=== PATIENT | male | born 1955 | race Caucasian/White ===

== ENCOUNTER 2024-07-22 14:15 | Emergency (ER) | payer MEDICARE, SELFPAY ==
[2024-07-22] VITALS (7 sets, daily range): BP systolic 107–137; BP diastolic 67–97; PULSE 59–87; RESP 13–24; TEMP 36.7–36.8; O2SAT 95–100
--- NOTE | ~2024-07-22 | CT_ITS ---
CT of the Abdomen and Pelvis: Indication: Intragluteal abscess Technique: 2.5 mm axial scans were obtained through the abdomen and pelvis following intravenous adm inistration of 100 cc of Omnipaque 350. Dose reduction technique was used on this scan by utilizing a utomated exposure control and iterative reconstruction technique. The dose-length product (DLP) was 1 012.16 mGy-cm. Findings: Scans through the lung bases are unremarkable. The liver, spleen, pancreas, gallbladder, adrenals and kidneys are within normal limits. No evidence of aortic aneurysm. No lymphadenopathy. No bowel obstruction or bowel wall thickening. There is no evidence to suggest acute appendicitis. Images through the pelvis were performed. Urinary bladder unremarkable. Prostate gland and seminal ve sicles are unremarkable. No ascites. There is a 6.0 x 4.3 cm hyperdense masslike lesion at the medial aspect of the left gluteus radha m uscle, compatible with hematoma. There is extensive surrounding infiltrative change in the subcutaneo us soft tissues of the left buttock region. No soft tissue gas evident. Impression: 6.0 x 4.3 cm probable hematoma at the medial aspect of the left gluteus radha muscle with extensive surrounding inflammatory/infiltrative changes. Correlate for superinfection. No definite fluid colle ction evident. Reviewed, dictated and finalized at [facility]. Impression: 6.0 x 4.3 cm probable hematoma at the medial aspect of the left gluteus radha muscle with extensive surrounding inflammatory/infiltrative changes. Correlate for superinfection. No definite fluid collection evident.
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
[2024-07-22] MEDS: HALOPERIDOL LACTATE 5 MG/ML VIAL IM (17:56)
--- NOTE | 2024-07-22 18:29 | PC.NURSE ---
this RN attempted to start an IV on the pt but pt was agitated, trying to fight staff, and endangering himself and others. 1mL of haloperidol was given IM to help calm the pt down to get an IV in
[2024-07-22] MEDS: SODIUM CHLORIDE 0.9% IV 1,000 ML 999 ML IV CONT ×2 (18:38→23:05)
[2024-07-22] MEDS: MORPHINE SULFATE (*CRX) 4 MG/ML INJ IV PUSH (18:43)
[2024-07-22 18:53] LABS: Basophils Absolute Auto 0.1 K/mm3 (0.0-0.1); Basophils Percent Auto 0.7 % (0.2-1.2); Eosinophils Absolute Auto 0.1 K/mm3 (0-0.3); Hematocrit 38.9 % (42.0-52.0); Immature Granulocyte Absolute 0.08 K/mm3 (0.00-0.031); Immature Granulocyte Percent A 0.7 % (0-0.5); Lymphocytes Percent Auto 14.9 % (18.3-44.2); Mean Corpuscular HGB Conc 33.4 g/dl (32-36); Mean Corpuscular Hemoglobin 31.9 pg (26-34); Mean Corpuscular Volume 95.6 fl (80-100); Mean Platelet Volume 9.3 fl (7.4-10.4); Monocytes Absolute Auto 1.3 K/mm3 (0.1-0.6); Monocytes Percent Auto 11.7 % (2.6-8.5); Neutrophils Absolute Auto 8.1 K/mm3 (1.3-6.7); Platelet Count Result 490 k/mm3 (150-375); Red Blood Count 4.07 M/mm3 (4.6-6.20); Red Cell Distribution Width 14.6 % (11.5-14.5); White Blood Count 11.4 K/mm3 (4.5-10.0)
[2024-07-22 19:29] LABS: Erythrocyte Sedimentation Rate 10 mm/hr (0-20)
[2024-07-22 19:30] LABS: Lactic Acid Reflex 3.5 mmol/L (0.7-2.0)
[2024-07-22 19:32] LABS: Alanine Aminotransferase 23 U/L (6-50); Albumin Level 4.6 g/dL (3.5-5.1); Alkaline Phosphatase 41 U/L (38-126); Anion Gap 12 mmol/L (4-12); Aspartate Amino Transferase 51 U/L (17-59); Bilirubin,Total 0.8 mg/dL (0.2-1.3); Blood Urea Nitrogen 23 mg/dL (9-20); CRP < 0.5 mg/dL (<1.0); Calcium 9.2 mg/dL (8.4-10.2); Carbon Dioxide 27 mmol/L (22-30); Chloride 98 mmol/L (98-107); Estimated CRCL calculation 65 ml/min; Estimated Glomerular Filt Rate > 60; Glucose 92 mg/dL (65-110); Potassium 4.2 mmol/L (3.4-5.0); Sodium 137 mmol/L (137-145)
[2024-07-22] MEDS: OLANZapine 10 MG INJ VIAL 7.5 MG IM (20:34)
[2024-07-22 21:50] LABS: Reflex Lactic Acid Yes or No Add Lactic
[2024-07-22 23:33] LABS: Lactic Acid 0.8 mmol/L (0.7-2.0)
[2024-07-23] MEDS: OLANZapine 10 MG INJ VIAL 5 MG IM (00:36)
[2024-07-23 01:34] VITALS: BP 134/65; PULSE 73; RESP 18; O2SAT 98
[2024-07-23] MEDS: LIDOCAINE 5% PATCH 1 PATCH TRANSDERM (01:54)
[2024-07-23] MEDS: ACETAMINOPHEN 500 MG TABLET 1000 MG PO (01:55)
[2024-07-23] MEDS: IBUPROFEN 400 MG TABLET PO (01:55)
[2024-07-23 04:35] VITALS: BP 156/65; PULSE 77; RESP 29; O2SAT 94
[2024-07-23 06:46] VITALS: BP 182/76; PULSE 98; RESP 18; O2SAT 95
[2024-07-23 08:30] VITALS: BP 117/56; PULSE 83; RESP 18; TEMP 36.8; O2SAT 97
== END 2024-07-23 08:30 ==
PROVIDERS: Emergency Provider Student in an Organized Health Care Education/Training Program
DX: R79.89 Other specified abnormal findings of blood chemistry (principal); D64.9 Anemia, unspecified; D75.839 Thrombocytosis, unspecified; D72.829 Elevated white blood cell count, unspecified; S30.0XXA Contusion of lower back and pelvis, initial encounter; G30.9 Alzheimer's disease, unspecified; F02.80 Dementia in other diseases classified elsewhere, unspecified severity, without behavioral disturbance, psychotic disturbance, mood disturbance, and anxiety; X58.XXXA Exposure to other specified factors, initial encounter
CPT/HCPCS: 36415; 74177; 80053; 83605; 83735; 85025; 85652; 86140; 96360; 96361; 96372; 96374; 99284; A9270; J1630; J2270; J2359; J7030; Q9967

== ENCOUNTER 2025-03-06 16:15 | Emergency (ER) | payer MEDICARE, SELFPAY ==
[2025-03-06 16:16] VITALS: BP 106/84; PULSE 98; RESP 16; TEMP 36.8; O2SAT 98
--- NOTE | 2025-03-06 16:40 | PC.NURSE ---
Pt. agitated, attempts to grab and pull staff. Also attempted to grab at at bedside. Pt. not redirectable.
[2025-03-06] MEDS: WATER, STERILE FOR INJECTION 10 ML VIAL XX ×2 (16:41→18:03)
[2025-03-06] MEDS: OLANZapine 10 MG INJ VIAL (16:41)
--- NOTE | 2025-03-06 16:42 | PC.NURSE ---
gave 10mg of Zyprexa IM per Dr. Zych. TESFAYE.
--- NOTE | 2025-03-06 16:50 | PC.NURSE ---
Dr. Forbes at bedside talking with pt. and pt. .
--- NOTE | 2025-03-06 17:23 | PC.NURSE ---
Pt. continues to be restless. Pt. unable to use urinal despite repeated reminders by and this RN at bedside. Dr. Forbes notified and to bedside to discuss plan of care with pt. .
--- NOTE | 2025-03-06 17:35 | ED.GENADULT ---
HPI - General Adult General Chief complaint: Urogenital-Male Stated complaint: hematuria Time Seen by Provider: 03/06/25 16:26 History of Present Illness HPI narrative: This is a 69-year-old male with severe dementia presenting for hematuria. Patient can provide no meaningful interview information to the interview. He knows his name but not his birthday or his who is currently with him. His said that he urinated sarahi red blood at the custodial. Does not appear to be causing him any distress. Patient is not on blood thinners. 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 A&O x1, Head: atraumatic. EYES: EOMI, NOSE: Atraumatic NECK: Trachea midline RESPIRATORY: No increased rate of breathing CTAB CARDIOVASCULAR: RRR, no peripheral edema ABDOMINAL: Non-distended soft nontender MUSCULOSKELETAl: No obvious deformities NEURO: Alert. Moving 4/4 extremities SKIN:: Warm, dry. Normal color PSYCHIATRIC: Normal affect Course Vital Signs Vital signs: Vital Signs Temperature 98.2 F 03/06/25 16:16 Pulse Rate 98 03/06/25 16:16 Respiratory Rate 16 03/06/25 16:16 Blood Pressure 106/84 03/06/25 16:16 Pulse Oximetry 98 03/06/25 16:16 Temperature 98.2 F 03/06/25 16:16 Pulse Rate 98 03/06/25 16:16 Respiratory Rate 16 03/06/25 16:16 Blood Pressure 106/84 03/06/25 16:16 Pulse Oximetry 98 03/06/25 16:16 Medical Decision Making MDM Narrative Medical decision making narrative: -Course: 69-year-old male presenting with hematuria. Patient required multiple rounds of sedation due to his severe dementia but eventually were able to obtain blood work and a urine. Blood work was unremarkable with no evidence of sepsis or any significant abnormalities. Lactic was normal. Urine showed greater than 100 red blood cells, trace leuk esterase. No overt signs of infection but given his new onset hematuria will treat with short course of antibiotics. I discussed a CT abdomen pelvis with the and she has declined. Patient has severe claustrophobia and she believes this will cause an undue amount of stress. Bladder was scanned to make sure the patient was not retaining and there was essentially nothing left in his bladder. Patient will be discharged to follow-up with urology. Given return precautions. -DDX includes but is not limited to: UTI, BPH, renal cancer -Co-morbidities complicating care:Severe dementia Vital Signs Vital Signs: Vital Signs Temperature 98.2 F 03/06/25 16:16 Pulse Rate 98 03/06/25 16:16 Respiratory Rate 16 03/06/25 16:16 Blood Pressure 106/84 03/06/25 16:16 Pulse Oximetry 98 03/06/25 16:16 Temperature 98.2 F 03/06/25 16:16 Pulse Rate 98 03/06/25 16:16 Respiratory Rate 16 03/06/25 16:16 Blood Pressure 106/84 03/06/25 16:16 Pulse Oximetry 98 03/06/25 16:16 Discharge Plan Discharge Clinical Impression: Hematuria, Acute UTI Patient Disposition: Home Condition: Stable Instructions: Antibiotic Form, Hematuria (ED) Additional Instructions: Jay was seen for blood in his urine. Please complete a course of Keflex in case this is due to infection. Please follow-up with the urologist listed below. Return if he develops any new or worsening symptoms such as fevers, abdominal pain, or weakness. Patient Language: Nicaraguan Prescriptions: New cephalexin 500 mg capsule 500 mg PO Q12H Qty: 10 0RF No Action lidocaine 5 % adhesive patch,medicated 1 patch topical DAILY Qty: 15 0RF Rx Instructions: leave on most painful area for up to 12 hrs Follow-up/Referrals: Johnie,Swathi [Other] Roni Smallwood MD [Physician] - 1 Week
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
[2025-03-06] MEDS: OLANZapine 10 MG INJ VIAL IM (17:54)
[2025-03-06 17:56] LABS: Bacteria Urine None Seen /hpf; Non Pathogenic Casts 0-2; RBC Urine >100 /hpf (0-2); Squamous Epithelial Cell Urine None Seen /hpf (Few); WBC Urine 0-5 /hpf (0-3)
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
[2025-03-06 18:02] LABS: Add Urine Microscopic? YES; Appearance Urine Clear (Clear); Bilirubin Urine Negative (Negative); Blood Urine 3+ (Negative); Glucose Urine UA Negative (Negative); Ketones Urine Negative (Negative); Leukocyte Esterase Ur Trace LEU/UL (Negative); Nitrate Urine Negative (Negative); Protein Urine 2+ mg/dL (Negative); Specific Grav Ur 1.008 (1.001-1.035); Urobilinogen Urine 0.2 mg/dL (<2.0)
[2025-03-06 18:02] LABS: Basophils Absolute Auto 0.1 K/mm3 (0.0-0.1); Basophils Percent Auto 0.9 % (0.2-1.2); Eosinophils Absolute Auto 0.1 K/mm3 (0-0.3); Eosinophils Percent Auto 1.8 % (0-4.4); Hematocrit 35.4 % (42.0-52.0); Hemoglobin 11.3 g/dL (14.0-18.0); Immature Granulocyte Absolute 0.05 K/mm3 (0.00-0.031); Immature Granulocyte Percent A 0.7 % (0-0.5); Lymphocytes Absolute Auto 1.81 K/mm3 (0.9-3.2); Lymphocytes Percent Auto 26.5 % (18.3-44.2); Mean Corpuscular HGB Conc 31.9 g/dl (32-36); Mean Corpuscular Hemoglobin 30.4 pg (26-34); Mean Corpuscular Volume 95.2 fl (80-100); Mean Platelet Volume 9.1 fl (7.4-10.4); Monocytes Absolute Auto 0.7 K/mm3 (0.1-0.6); Monocytes Percent Auto 10.9 % (2.6-8.5); Neutrophils Percent Auto 59.2 % (45.5-73.1); Platelet Count Result 329 k/mm3 (150-375); Red Blood Count 3.72 M/mm3 (4.6-6.20); Red Cell Distribution Width 16.4 % (11.5-14.5); White Blood Count 6.8 K/mm3 (4.5-10.0)
[2025-03-06 18:03] LABS: Color Urine Light Red (Yellow)
[2025-03-06 18:13] LABS: Lactic Acid Reflex 0.6 mmol/L (0.7-2.0)
[2025-03-06 18:14] LABS: Alanine Aminotransferase 17 U/L (6-50); Albumin Level 4.2 g/dL (3.5-5.1); Alkaline Phosphatase 48 U/L (38-126); Anion Gap 5 mmol/L (4-12); Aspartate Amino Transferase 31 U/L (17-59); Bilirubin,Total 0.3 mg/dL (0.2-1.3); Blood Urea Nitrogen 25 mg/dL (9-20); Calcium 8.9 mg/dL (8.4-10.2); Carbon Dioxide 31 mmol/L (22-30); Chloride 103 mmol/L (98-107); Estimated Glomerular Filt Rate 59; Glucose 85 mg/dL (65-110); Potassium 4.6 mmol/L (3.4-5.0); Sodium 139 mmol/L (137-145)
--- NOTE | 2025-03-06 18:17 | PC.NURSE ---
Dr. Forbes at bedside speaking with pt. and pt. .
--- OUTSIDE RECORDS SUMMARY | 2025-03-06 18:18 | XMS_ITS | Referral Summary ---
Author Organization [facility] Address [address] [place] [address] Care Team Providers Care Machine Learning Intern Name Role Phone Swathi Jett MD Primary Care Provider [phone] Allergies Active Allergy Reactions Criticality Noted Date Comments Adhesive Tape-Silicones Other (See comments) Low blilsters Medications finasteride (PROSCAR) 5 mg tablet 07/25/2017 Active cyanocobalamin (Vitamin B-12) 1,000 mcg tabletIndication s:Prevention of Vitamin B12 Deficiency Take 100 mcg by mouth daily. Active multivitamin-min erals-lutein tablet Take by mouth. Active aspirin 81 mg tablet Take 1 tablet (81 mg total) by mouth daily Active cholecalciferol (VITAMIN D-3) 2000 unit tablet Act harrison memantine (NAMENDA) 10 mg tabletIndication s:Early onset Alzheimer's dementia without behavioral disturbance (HCC) TAKE 1 TABLET(10 MG) BY MOUTH TWICE DAILY 180 tablet 3 09/20/2023 Active donepeziL (ARICEPT) 10 mg tablet TAKE 1 TABLET(10 MG) BY MOUTH EVERY NIGHT 90 tablet 1 04/06/2024 Active Active Problems Problem Noted Date Diagnosed Date Early onset Alzheimer's minnie ntia without behavioral disturbance 09/17/2017 Social History Tobacco Use Types Packs/Day Years Used Date Smoking Tobacco: Never Smokeless Tobacco: Never Tobacco Cessation:Counseling Given: Not Answered Alcohol Use Standard Drinks/Week Comments Yes 0 (1 standard drink = 0.6 oz pur e alcohol) Personal Safety Answer Date Recorded Getting School Help Needed Not on file 12/15 Sex and Gender Information Value Date Recorded Sex Assigned at Not on file 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 Gender Identity Not on file Sexual Orientation Not on file Last Filed Vital Signs Vital Sign Reading Time Taken Comments Blood Pressure 101/63 07/12/2023 9:59 AM CDT Pulse 51 07/12/2023 9:59 AM CDT Temperature - - Respiratory Rate 18 07/12/2023 9:59 AM CDT Oxygen Saturation 100% 07/12/2023 9:59 AM CDT Inhaled Oxygen Concentration - - Weight 73.5 kg (162 lb) 07/12/2023 9:59 AM CDT Height 188 cm (6' 2.02 ) 07/12/2023 9:59 AM CDT Body Mass Index 20.79 07/12/2023 9:59 AM CDT Plan of Treatment Not on file Procedures Procedure Name Priority Date/Time Associated Diagnosis Comments COLONOSCOPY REPORT 02/24/2017 from Last 3 Months or Most Recently Relevant to Health Maintenance Results * COLONOSCOPY REPORT (02/24/2017) Anatomical Region Laterality Modality Other Narrative 02/24/2017 Ordered by an unspecified provider. us Historical Provider GI PROCEDURE ORDERABLES F inal Result from Last 3 Months or Most Recently Relevant to Health Maintenance Insurance Instilling Values [facility] [employer] MEDICARE Care Teams Machine Learning Intern Relationship Specialty Start Date End Date Swathi Jett MD [address] [facility] [address] [place] [address] PCP - General Internal Medicine 09/16/22
--- OUTSIDE RECORDS SUMMARY | 2025-03-06 18:18 | XMS_ITS | Clinical Summary ---
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 Gender Identity Not on file Sexual Orientation Not on file Obstetrics History Last Filed Vital Signs Vital Sign Reading [...] 07/12/2023 9:59 AM CDT Plan of Treatment Health Maintenance Due Date Last Done Comments Depression Screening 1955 Fall Risk Assessment 1955 Hepatitis C Screening 1955 Prostate Cancer Screening-PSA 1955 Hepatitis B Screening 1973 Zoster Vaccine (1 of 2) 2005 Abdominal Aortic Aneurysm (AAA) Screen 2020 Well Visit 65+ 2020 Pneumococcal vaccine 65+ (2 of 2 - PCV) 10/03/2020 1 12/03/2018 Covid-19 Vaccine (3 - season) 2024, 01/11/2021 DTaP/Tdap/Td Vaccine (2 - Tdap) 09/07/2024 4 Influenza Vaccine (Season Ended) 2025 09/30/20 22, 08/17/2018 Colon Cancer Screening-Colonoscopy 02/24/20272016 Colon Cancer Screening-CT Colonography Discontinued Colon Cancer Screening-DNA Stool Discontinued 02/25/20 17 Colon Cancer Screening-FIT Discontinued 02/24/2017 Colon Cancer Screening-Sigmoidoscopy Discontinued 02/13 Procedures Procedure Name Priority Date/Time Associated Diagnosis Comments COLONOSCOPY REPORT 02/24/2017 from Last 3 Months or Most Recently Relevant to Health Maintenance Results * COLONOSCOPY REPORT (02/24/2017) Anatomical Region Laterality Modality Other Narrative 02/24/2017 Ordered by an unspecified provider. us Historical Provider GI PROCEDURE ORDERABLES F inal Result from Last 3 Months or Most Recently Relevant to Health Maintenance Insurance [employer] [facility] AET[employer] MEDICARE Care Teams Surgical Endoscopist Relationship Specialty Start Date End Date Swathi Jett MD [address] [place] [address] PCP - General Internal Medicine 09/16/22
--- OUTSIDE RECORDS SUMMARY | 2025-03-06 18:18 | XMS_ITS | Data Portability ---
Author Organization MANUELA wolfe MD, autoContract Address [address] [place] [address] Care Team Providers Care House Moving Supervisor Name Role Phone BURAK CHAPMAN Referring Provider [phone] GILLES MONAHAN Referring Provider [phone] SARAH HUGHES Referring Provider [phone] Assessment No assessment recorded. Plan of Treatment Reminders Order Date Submit Date Provider Last Modified By Organization Details Last Modified Time Details Appointments None recorded. Lab CBC w/ auto diff 2023 024 [facility] with Homer [facility], [address] [facility], [facility] [address], [place], [address], 4 11:40:25 CMP, serum or plasma 2023 024 [facility] with Homer [facility], [address] [facility], [facility], [place], [address], 4 11:40:24 unlisted lab - POC urinalysis, UA 2023 024 [facility], [address] [facility], [facility] [address], [place], [address], 4 10:24:47 Referral None recorded. Procedures None recorded. Surgeries None recorded. Imaging None recorded. Medication Orders alprazolam 0.25 mg tablet 2022 023 [id number], [address], [place], [place], [phone], 4 13:24:53 Patient TargetsNo targets recorded. Patient InstructionsNo instructions recorded. Reason for Referral None Reported. Results Created Date Observation Date Name Description Value Unit Range Abnormal Flag Note LastModifiedBy Organization Detail LastModifiedTime 09/23/20 23 09/23/2023 CBC WITH DIFFE RENTI AL WBC 5.2 K/uL 3.8-10 .8 Not Available [facility] - Manual Order Only [address], [place], [address], 10/02/2023 15:48:05 09/23/20 23 09/23/2023 CBC WITH DIFFE RENTI AL RBC 4.72 M/uL 4.20-5 .80 Not Available [facility] - Manual Order Only [address], [place], [address], 10/02/2023 15:48:05 09/23/20 23 09/23/2023 CBC WITH DIFFE RENTI AL hemoglobin 14.7 g/dL 13.2-1 7.1 Not Available [facility] - Manual Order Only [address], [place], [address], 10/02/2023 15:48:05 09/23/20 23 09/23/2023 CBC WITH DIFFE RENTI AL hematocrit 44.5 % 38.5-5 0.0 Not Available [facility] - Manual Order Only [address], [place], [address], 10/02/2023 15:48:05 09/23/20 23 09/23/2023 CBC WITH DIFFE RENTI AL MCV 94.3 fL 80.0-1 00.0 Not Available [facility] - Manual Order Only [address], [place], [address], 10/02/2023 15:48:05 09/23/20 23 09/23/2023 CBC WITH DIFFE RENTI AL MCH 31.1 pg 27.0-3 3.0 Not Available [facility] - Manual Order Only [address], [place], [address], 10/02/2023 15:48:05 09/23/20 23 09/23/2023 CBC WITH DIFFE RENTI AL MCHC 33.0 g/dL 32.0-3 6.0 Not Available [facility] - Manual Order Only [address], [place], [address], 10/02/2023 15:48:05 09/23/20 23 09/23/2023 CBC WITH DIFFE RENTI AL red cell distribution width 13.0 % 11.0-1 5.0 Not Available [facility] - Manual Order Only [address], [place], [address], 10/02/2023 15:48:05 09/23/20 23 09/23/2023 CBC WITH DIFFE RENTI AL platelet count 430 K/uL 140-40 0 high Not Available [facility] - Manual Order Only [address], [place], [address], 10/02/2023 15:48:05 09/23/20 23 09/23/2023 CBC WITH DIFFE RENTI AL mean platelet volume 9.8 fL 7.5-12 .5 Not Available [facility] - Manual Order Only [address], [place], [address], 10/02/2023 15:48:05 09/23/20 23 09/23/2023 CBC WITH DIFFE RENTI AL neutrophil % 69.3 % 38.0-8 0.0 Not Available [facility] - Manual Order Only [address], [place], [address], 10/02/2023 15:48:05 09/23/20 23 09/23/2023 CBC WITH DIFFE RENTI AL neutrophil absolute 3.58 K/uL 1.50-7 .80 Not Available [facility] - Manual Order Only [address], [place], [address], 10/02/2023 15:48:05 09/23/20 23 09/23/2023 CBC WITH DIFFE RENTI AL lymphocyte % 20.3 % 15.0-4 9.0 Not Available [facility] - Manual Order Only [address], [place], [address], 10/02/2023 15:48:05 09/23/20 23 09/23/2023 CBC WITH DIFFE RENTI AL lymphocyte absolute 1.05 K/uL 0.85-3 .90 Not Available [facility] - Manual Order Only [address], [place], [address], 10/02/2023 15:48:05 09/23/20 23 09/23/2023 CBC WITH DIFFE RENTI AL monocyte % 7.6 % 0.0-13 .0 Not Available [facility] - Manual Order Only [address], [place], [address], 10/02/2023 15:48:05 09/23/20 23 09/23/2023 CBC WITH DIFFE RENTI AL monocyte absolute 0.39 K/uL 0.20-0 .95 Not Available [facility] - Manual Order Only [address], [place], [address], 10/02/2023 15:48:05 09/23/20 23 09/23/2023 CBC WITH DIFFE RENTI AL eosinophil % 1.6 % 0.0-8. 0 Not Available [facility] - Manual Order Only [address], [place], [address], 10/02/2023 15:48:05 09/23/20 23 09/23/2023 CBC WITH DIFFE RENTI AL eosinophil absolute 0.08 K/uL 0.00-0 .50 Not Available [facility] - Manual Order Only [address], [place], [address], 10/02/2023 15:48:05 11/0909/23/2023 CBC WITH DIFFE RENANDRES AL basophil % 1.2 % 0.0-2. 0 Not Available [facility] - Manual Order Only [address], [place], [address], 10/02/2023 15:48:05 09/23/20 23 09/23/2023 CBC WITH DIFFE RENTI AL basophil absolute 0.06 K/uL 0.00-0 .20 Not Available [facility] - Manual Order Only [address], [place], [address], 10/02/2023 15:48:05 09/23/20 23 09/23/2023 COMPR EHENS DYLON METAB OLIC PANEL glucose 79 mg/dL 65-99 Not Available [facility] - Manual Order Only [address], [place], [address], 10/02/2023 15:48:06 09/23/20 23 09/23/2023 COMPR EHENS DYLON METAB OLIC PANEL calcium 9.7 mg/dL 8.5-10 .5 Not Available [facility] - Manual Order Only [address], [place], [address], 10/02/2023 15:48:06 09/23/20 23 09/23/2023 COMPR EHENS DYLON METAB OLIC PANEL sodium 141 mmol/ L 136-14 5 Not Available [facility] - Manual Order Only [address], [place], [address], 10/02/2023 15:48:06 09/23/20 23 09/23/2023 COMPR EHENS DYLON METAB OLIC PANEL potassium 4.3 mmol/ L 3.5-5. 1 Not Available [facility] - Manual Order Only [address], [place], [address], 10/02/2023 15:48:06 09/23/20 23 09/23/2023 COMPR EHENS DYLON METAB OLIC PANEL chloride 99 mmol/ L 95-108 Not Available [facility] - Manual Order Only [address], [place], [address], 10/02/2023 15:48:06 09/23/20 23 09/23/2023 COMPR EHENS DYLON METAB OLIC PANEL CO2 (carbon dioxide) 30 mmol/ L 21-33 Not Available [facility] - Manual Order Only [address], [place], [address], 10/02/2023 15:48:06 09/23/20 23 09/23/2023 COMPR EHENS DYLON METAB OLIC PANEL BUN (blood urea nitrogen) 13 mg/dL 8-23 Not Available [facility] - Manual Order Only [address], [place], [address], 10/02/2023 15:48:06 09/23/20 23 09/23/2023 COMPR EHENS DYLON METAB OLIC PANEL creatinine 0.97 mg/dL 0.70-1 .35 Not Available [facility] - Manual Order Only [address], [place], [address], 10/02/2023 15:48:06 09/23/20 23 09/23/2023 COMPR EHENS DYLON METAB OLIC PANEL protein, total 6.8 g/dL 6.1-8. 0 Not Available [facility] - Manual Order Only [address], [place], [address], 10/02/2023 15:48:06 09/23/20 23 09/23/2023 COMPR EHENS DYLON METAB OLIC PANEL albumin 4.8 g/dL 3.5-5. 5 Not Available [facility] - Manual Order Only [address], [place], [address], 10/02/2023 15:48:06 09/23/20 23 09/23/2023 COMPR EHENS DYLON METAB OLIC PANEL globulin 2.0 g/dL_ (calc ) 1.8-3. 8 Not Available [facility] - Manual Order Only [address], [place], [address], 10/02/2023 15:48:06 09/23/20 23 09/23/2023 COMPR EHENS DYLON METAB OLIC PANEL albumin/glob ulin ratio 2.4 calc 1.0-2. 5 Not Available [facility] - Manual Order Only [address], [place], [address], 10/02/2023 15:48:06 09/23/20 23 09/23/2023 COMPR EHENS DYLON METAB OLIC PANEL alkaline phosphatase 47 U/L <150 Not Available [facility] - Manual Order Only [address], [place], [address], 10/02/2023 15:48:06 09/23/20 23 09/23/2023 COMPR EHENS DYLON METAB OLIC PANEL alanine aminotransfe rase (ALT) 13 U/L 9-46 Not Available [facility] - Manual Order Only [address], [place], [address], 10/02/2023 15:48:06 09/23/20 23 09/23/2023 COMPR EHENS DYLON METAB OLIC PANEL aspartate aminotransfe rase (AST) 18 U/L 10-35 Not Available [facility] - Manual Order Only [address], [place], [address], 10/02/2023 15:48:06 09/23/20 23 09/23/2023 COMPR EHENS DYLON METAB OLIC PANEL bilirubin, total 0.6 mg/dL <1.3 Not Available [facility] - Manual Order Only [address], [place], [address], 10/02/2023 15:48:06 09/23/20 23 09/23/2023 COMPR EHENS DYLON METAB OLIC PANEL BUN/creatini ne ratio Not Applic able calc 6-22 Not Available [facility] - Manual Order Only [address], [place], [address], 10/02/2023 15:48:06 09/23/20 23 09/23/2023 COMPR EHENS DYLON METAB OLIC PANEL eGFR 85 mL/mi n/1.7 3m_sq uared >59 The eGFR is based on the CKD-E PI 2020 equat ion. To calcu late the new eGFR from a previ ous Creat inine or Cysta tin C resul t, go to https ://ww w.kid osmel.o rg/pr ofess ional s/kdo qi/gf r%5Fc alcul ator. Not Available [facility] - Manual Order Only [address], [place], [address], 10/02/2023 15:48:06 09/23/20 23 09/23/2023 URIC ACID uric acid 5.2 mg/dL 3.2-8. 6 Not Available [facility] - Manual Order Only [address], [place], [address], 10/02/2023 15:48:07 09/23/20 23 09/23/2023 HEMOG LOBIN A1C HbA1C 5.2 % <5.7 For the purpo se of screprasanna wei for the prese nce of diabe champ: <5.7% is consi stent with the absen ce of diabe champ; 5.7-6 .4% is consi stent with incre ased risk for diabe champ (pred iabet es); >= 6.5% is consi stent with diabe champ. This assay resul t is consi stent with a decre ased risk of diabe champ. Curre ntly, no conse nsus exist samira paredes use of hemog lobin A1c for diagn osis of diabe champ in child casi. Accor lena to Ameri can Diabe champ Assoc iatio n (ADA) guide lines , hemog lobin A1c <7.0% repre sents optim al contr ol in non-p regna nt diabe tic patie nts. Diffe rent ri cs may apply to speci fic patie nt popul atflorence s. Stand ards of Medic al Care in Diabe champ (ADA) . Not Available [facility] - Manual Order Only [address], [place], [address], 10/02/2023 15:48:07 09/23/20 23 09/23/2023 HEMOG LOBIN A1C estimated average glucose 103 mg/dL <117 The estim ated avera ge gluco se value is an adjun ct to the treat ment of both Type I and Type II Diabe champ. It is not inten ded for the diagn osis or risk asses sment of patie nts witho ut diabe champ. (Refe rence : Marco CHENG et al. Diabe champ Care 2008; 31:14 73-14 78). Not Available [facility] - Manual Order Only [address], [place], [address], 10/02/2023 15:48:07 09/23/20 23 09/23/2023 LIPID PANEL W/ TG/HD L-C (ORDE RED WITH LIPOP ROTEI N, NMR) cholesterol, total 225 mg/dL <200 high Not Available [facility] - Manual Order Only [address], [place], [address], 10/02/2023 15:48:08 09/23/20 23 09/23/2023 LIPID PANEL W/ TG/HD L-C (ORDE RED WITH LIPOP ROTEI N, NMR) HDL cholesterol 55 mg/dL >39 Not Available [facility] - Manual Order Only [address], [place], [address], 10/02/2023 15:48:08 09/23/20 23 09/23/2023 LIPID PANEL W/ TG/HD L-C (ORDE RED WITH LIPOP ROTEI N, NMR) triglyceride s 136 mg/dL <150 Not Available [facility] - Manual Order Only [address], [place], [address], 10/02/2023 15:48:08 09/23/20 23 09/23/2023 LIPID PANEL W/ TG/HD L-C (ORDE RED WITH LIPOP ROTEI N, NMR) LDL cholesterol 144 mg/dL _(chilo c) <100 high Juan able range <100 mg/dL for prima ry preve ntion ; <70 mg/dL for patie nts with CHD or diabe tic patie nts with >= 2 CHD risk facto rs. LDL-C is now calcu lated using the Deena n-Hop kins calcu latio n, which is a valid ated novel bruceo d santiago jamisonte r accur acy than the Fried nic equat ion in the estim ation of LDL-C . Deena wolfe SS et al. RADHA. 2013; 310(1 9): 2061- 2068 (http ://ed ati on.Qu Mandy Yip[employer] Arts. com/f aq/FA Q164) Not Available [facility] - Manual Order Only [address], [place], [address], 10/02/2023 15:48:08 09/23/20 23 09/23/2023 LIPID PANEL W/ TG/HD L-C (ORDE RED WITH LIPOP ROTEI N, NMR) chol/HDL-C 4.1 calc <5.0 Not Available [facility] - Manual Order Only [address], [place], [address], 10/02/2023 15:48:08 09/23/20 23 09/23/2023 LIPID PANEL W/ TG/HD L-C (ORDE RED WITH LIPOP ROTEI N, NMR) non-HDL cholesterol 170 mg/dL _(chilo c) <130 high For patie nts with diabe champ plus 1 major ASCVD risk facto r, treat ing to a non-H DL-C goal of <100 mg/dL (LDL- C of <70 mg/dL ) is consi dered a thera peuti c optio n. Not Available [facility] - Manual Order Only [address], [place], [address], 10/02/2023 15:48:08 09/23/20 23 09/23/2023 LIPID PANEL W/ TG/HD L-C (ORDE RED WITH LIPOP ROTEI N, NMR) TG/HDL-C 2.5 calc <2.0 high Not Available [facility] - Manual Order Only [address], [place], [address], 10/02/2023 15:48:08 09/23/20 23 09/23/2023 MYELO PEROX IDASE myeloperoxid ase 265 pmol/ L <470 Based on a high risk sub-p opula tion (N=92 0) defin ed as ambul atory stabl e patie nts witho ut acute coron nini syndr ome who under went elect dylon diagn ostic coron nini angio graph y (1) and a refer ence range study of appar ently healt hy donor s, we have defin ed the follo wing cut-o ffs for MPO: A cut-o ff of <470 pmol/ L defin es an 'appa rentl y healt hy' popul ation at optim al relat dylon risk for a cardi ovasc ular event , 470-5 39 pmol/ L defin es a popul ation at moder ate relat dylon risk for a cardi ovasc ular event (2-fo ld incre ased risk of MACE at 3 years ), and > = 540 pmol/ L defin es a popul ation with a high relat dylon risk for a cardi ovasc ular event . (Refe rence : 1. Logan et al. Am J Cardi ol. 2013; 111:4 65-47 0 and perso nal commu nicat ion with Logan et al). This test was devel oped and its kerwin tical perfo rmanc e lore cteri stics have been deter mined by [facility] [place] [facility]. It has not been clear ed or appro gera by the U.S. Food and Drug Admin istra tion. This assay has been valid ated pursu ant to the CLIA regul ation s and is used for clini chilo purpo ses. Not Available [facility] - Manual Order Only [address], [place], [address], 10/02/2023 15:48:08 09/23/20 23 09/23/2023 VITAM IN D 25 HYDRO XY LC-MS /MS vitamin D 25 hydroxy by lc-MS/MS 58.2 NG/mL >29.9 Vitam in D, 25-Hy droxy repor ts taryn ntrat ions of two commo n forms , 25-OH D2 and 25-OH D3. 25-OH D3 indic ates both endog enous produ ction and suppl ement ation . 25-OH D2 is an indic ator of exoge nous sourc es, such as diet or suppl ement ation . Thera py is based on measu remen t of Total 25-OH D, with level s <20 ng/mL indic ative of Vitam in D defic iency , while level s betwe en 20 ng/mL and 30 ng/mL sugge st insuf ficie ncy. Optim al level s are >=30 ng/mL . For addit ional infor hermelindo damon refer to http: //[facility] jc wolfe.curt stdia gnost ics.c om/fa q/FAQ 199(T his link is being provi ded for infor jackeline wolfe/[facility] catjona nal purpo ses only. )This test was amarjit hart and its kerwin tical perfo rmanc e lore cteri stics have been deter mined by [facility] demetrius [facility] randy nava of [place] at [facility]. It has not been clear ed or appro gera by the U.S. Food and Drug Admin istra tion. This assay has been valid ated pursu ant to the CLIA regul ation s and is used for clini chilo purpo ses. Not Available [facility] - Manual Order Only [address], [place], [address], 10/02/2023 15:48:09 11/09/20 23 09/23/2023 LIPOP ROTEI N FRACT IONAT ION, NMR W/LIP ID PANEL LDL-P 2228 nmol/ L <935 high Relat dylon risk: Optim al <935; Moder ate 935-1 816; High >1816 nmol/ L. Refer ence range is 592-2 404 nmol/ L. This test was devtello hart and its kerwin tical perfo rmanc e lore cteri stics have been deter mined by [facility]rius [facility] randy n[facility] [place] [facility]. It has not been clear ed or appro gera by the U.S. Food and Drug Admin istra tion. This assay has been valid ated pursu ant to the CLIA regul ation s and is used for clini chilo purpo ses. Not Available [facility] - Manual Order Only [address], [place], [address], 10/02/2023 15:48:09 09/23/20 23 09/23/2023 LIPOP ROTEI N FRACT IONAT ION, NMR W/LIP ID PANEL small LDL-P 901 nmol/ L <467 high Relat dylon risk: Optim al <467; Moder ate 467-8 20; High >820 nmol/ L. Refer ence range is <1408 nmol/ L. Not Available [facility] - Manual Order Only [address], [place], [address], 10/02/2023 15:48:09 09/23/20 23 09/23/2023 LIPOP ROTEI N FRACT IONAT ION, NMR W/LIP ID PANEL LDL size 20.9 nm >20.5 Relat dylon risk: Optim al >20.5 ; High <20.6 nm. Refer ence range is 20.0- 22.3 nm. Not Available [facility] - Manual Order Only [address], [place], [address], 10/02/2023 15:48:09 11/09/09/23/2023 LIPOP ROTEI N FRACT IONAT ION, NMR W/LIP ID PANEL HDL-P 37.4 umol/ L >32.8 Relat dylon risk: Optim al >32.8 ; Moder ate 29.2- 32.8; High <29.2 umol/ L. Refer ence range is 21.1- 43.4 umol/ L. Not Available [facility] - Manual Order Only [address], [place], [place], [facility], 10/02/2023 15:48:09 09/23/20 23 09/23/2023 LIPOP ROTEI N FRACT IONAT ION, NMR W/LIP ID PANEL large HDL-P 4.6 umol/ L >7.2 low Relat dylon risk: Optim al >7.2; Moder ate 5.3-7 .2; High <5.3 umol/ L. Refer ence range is >3.5 umol/ L. Not Available [facility] - Manual Order Only [address], [place], [address], 10/02/2023 15:48:09 09/23/20 23 09/23/2023 LIPOP ROTEI N FRACT IONAT ION, NMR W/LIP ID PANEL HDL size 8.6 nm >9.0 low Relat dylon risk: Optim al >9.0; Moder ate 8.7-9 .0; High <8.7 nm. Refer ence range is 8.3-1 0.5 nm. Not Available [facility] - Manual Order Only [address], [place], [address], 10/02/2023 15:48:09 09/23/2009/23/2023 LIPOP ROTEI N FRACT IONAT ION, NMR W/LIP ID PANEL large VLDL-P 1.8 nmol/ L <3.7 Relat dylon risk: Optim al <3.7; Moder ate 3.7-6 .1; High >6.1 nmol/ L. Refer ence range is <16.0 nmol/ L. Not Available [facility] - Manual Order Only [address], [place], [address], 10/02/2023 15:48:09 09/23/2009/23/2023 LIPOP ROTEI N FRACT IONAT ION, NMR W/LIP ID PANEL VLDL size 41.3 nm <47.1 Relat dylon risk: Optim al <47.1 ; Moder ate 47.1- 49.0; High >49.0 nm. Refer ence range is 41.1- 61.7 nm. Not Available [facility] - Manual Order Only [address], [place], [address], 10/02/2023 15:48:09 06/27/2007/03/2024 COMPR EHENS DYLON METAB OLIC PANEL glucose 82 mg/dL 65-99 normal Fasti ng refer ence inter bell Not Available [address], [address], 07/03/2024 11:40:23 06/27/20 24 07/03/2024 COMPR EHENS DYLON METAB OLIC PANEL urea nitrogen (BUN) 12 mg/dL 7-25 normal Not Available [address], [address], 07/03/2024 11:40:23 06/27/20 24 07/03/2024 COMPR EHENS DYLON METAB OLIC PANEL creatinine 0.97 mg/dL 0.70-1 .35 normal Not Available [facility] [address], [address], 07/03/2024 11:40:23 06/27/20 24 07/03/2024 COMPR EHENS DYLON METAB OLIC PANEL eGFR 85 mL/mi n/1.7 3m2 > or = 60 normal Not Available [address], [address], 07/03/2024 11:40:23 06/27/20 24 07/03/2024 COMPR EHENS DYLON METAB OLIC PANEL BUN/creatini ne ratio SEE NOTE: (calc ) 6-22 Not Repor benito: BUN and Creat inine are withi n refer ence range . Not Available [address], [address], 07/03/2024 11:40:23 06/27/20 24 07/03/2024 COMPR EHENS DYLON METAB OLIC PANEL sodium 140 mmol/ L 135-14 6 normal Not Available [address], [address], 07/03/2024 11:40:23 06/27/20 24 07/03/2024 COMPR EHENS DYLON METAB OLIC PANEL potassium 4.6 mmol/ L 3.5-5. 3 normal Not Available [address], [address], 07/03/2024 11:40:23 06/27/20 24 07/03/2024 COMPR EHENS DYLON METAB OLIC PANEL chloride 101 mmol/ L 98-110 normal Not Available [address], [address], 07/03/2024 11:40:23 06/27/20 24 07/03/2024 COMPR EHENS DYLON METAB OLIC PANEL carbon dioxide 33 mmol/ L 20-32 high Not Available [address], [address], 07/03/2024 11:40:23 06/27/20 24 07/03/2024 COMPR EHENS DYLON METAB OLIC PANEL calcium 9.4 mg/dL 8.6-10 .3 normal Not Available [address], [address], 07/03/2024 11:40:23 06/27/20 24 07/03/2024 COMPR EHENS DYLON METAB OLIC PANEL protein, total 6.6 g/dL 6.1-8. 1 normal Not Available [address] [place], [address], 07/03/2024 11:40:23 06/27/20 24 07/03/2024 COMPR EHENS DYLON METAB OLIC PANEL albumin 4.6 g/dL 3.6-5. 1 normal Not Available [address], [address], 07/03/2024 11:40:23 06/27/20 24 07/03/2024 COMPR EHENS DYLON METAB OLIC PANEL globulin 2.0 g/dL_ (calc ) 1.9-3. 7 normal Not Available [address], [address], 07/03/2024 11:40:23 06/27/20 24 07/03/2024 COMPR EHENS DYLON METAB OLIC PANEL albumin/glob ulin ratio 2.3 (calc ) 1.0-2. 5 normal Not Available [address], [address], 07/03/2024 11:40:23 06/27/20 24 07/03/2024 COMPR EHENS DYLON METAB OLIC PANEL bilirubin, total 0.4 mg/dL 0.2-1. 2 normal Not Available [address], [address], 07/03/2024 11:40:23 06/27/20 24 07/03/2024 COMPR EHENS DYLON METAB OLIC PANEL alkaline phosphatase 36 U/L 35-144 normal Not Available [facility] [address], [address], 07/03/2024 11:40:23 06/27/20 24 07/03/2024 COMPR EHENS DYLON METAB OLIC PANEL AST 17 U/L 10-35 normal Not Available [address], [address], 07/03/2024 11:40:23 06/27/20 24 07/03/2024 COMPR EHENS DYLON METAB OLIC PANEL ALT 14 U/L 9-46 normal Not Available [address], [address], 07/03/2024 11:40:23 06/27/20 24 07/03/2024 CBC (INCL UDES DIFF/ PLT) white blood cell count 7.0 thous and/u L 3.8-10 .8 normal Not Available [address], [address], 07/03/2024 11:40:25 06/27/20 24 07/03/2024 CBC (INCL UDES DIFF/ PLT) red blood cell count 4.23 pippa on/uL 4.20-5 .80 normal Not Available [address], [address], 07/03/2024 11:40:25 06/27/20 24 07/03/2024 CBC (INCL UDES DIFF/ PLT) hemoglobin 13.5 g/dL 13.2-1 7.1 normal Not Available [address], [address], 07/03/2024 11:40:25 06/27/20 24 07/03/2024 CBC (INCL UDES DIFF/ PLT) hematocrit 41.6 % 38.5-5 0.0 normal Not Available [address], [address], 07/03/2024 11:40:25 06/27/20 24 07/03/2024 CBC (INCL UDES DIFF/ PLT) MCV 98.3 fL 80.0-1 00.0 normal Not Available [address], [address], 07/03/2024 11:40:25 06/27/20 24 07/03/2024 CBC (INCL UDES DIFF/ PLT) MCH 31.9 pg 27.0-3 3.0 normal Not Available [address], [address], 07/03/2024 11:40:25 06/27/20 24 07/03/2024 CBC (INCL UDES DIFF/ PLT) MCHC 32.5 g/dL 32.0-3 6.0 normal Not Available [address], [address], 07/03/2024 11:40:25 06/27/20 24 07/03/2024 CBC (INCL UDES DIFF/ PLT) RDW 13.8 % 11.0-1 5.0 normal Not Available [address], [address], 07/03/2024 11:40:25 06/27/20 24 07/03/2024 CBC (INCL UDES DIFF/ PLT) platelet count 456 thous and/u L 140-40 0 high Not Available [address], [address], 07/03/2024 11:40:25 06/27/20 24 07/03/2024 CBC (INCL UDES DIFF/ PLT) MPV 9.1 fL 7.5-12 .5 normal Not Available [address], [address], 07/03/2024 11:40:25 06/27/20 24 07/03/2024 CBC (INCL UDES DIFF/ PLT) absolute neutrophils 4998 cells /uL 1500-7 800 normal Not Available [address], [address], 07/03/2024 11:40:25 06/27/20 24 07/03/2024 CBC (INCL UDES DIFF/ PLT) absolute lymphocytes 1239 cells /uL 850-39 00 normal Not Available [address], [address], 07/03/2024 11:40:25 06/27/20 24 07/03/2024 CBC (INCL UDES DIFF/ PLT) absolute monocytes 623 cells /uL 200-95 0 normal Not Available 55 [address], [address], 07/03/2024 11:40:25 06/27/20 24 07/03/2024 CBC (INCL UDES DIFF/ PLT) absolute eosinophils 91 cells /uL 15-500 normal Not Available [address], [address], 07/03/2024 11:40:25 06/27/20 24 07/03/2024 CBC (INCL UDES DIFF/ PLT) absolute basophils 49 cells /uL 0-200 normal Not Available [facility] [address], [address], 07/03/2024 11:40:25 06/27/20 24 07/03/2024 CBC (INCL UDES DIFF/ PLT) neutrophils 71.4 % normal Not Available [facility] [address], [address], 07/03/2024 11:40:25 06/27/20 24 07/03/2024 CBC (INCL UDES DIFF/ PLT) lymphocytes 17.7 % normal Not Available [facility] [address], [address], 07/03/2024 11:40:25 06/27/20 24 07/03/2024 CBC (INCL UDES DIFF/ PLT) monocytes 8.9 % normal Not Available [facility] [address], [address], 07/03/2024 11:40:25 06/27/20 24 07/03/2024 CBC (INCL UDES DIFF/ PLT) eosinophils 1.3 % normal Not Available [facility] [address], [address], 07/03/2024 11:40:25 06/27/20 24 07/03/2024 CBC (INCL UDES DIFF/ PLT) basophils 0.7 % normal Not Available [facility] [address] [place], [address], 07/03/2024 11:40:25 06/27/20 24 07/03/2024 URINA LYSIS REFLE X color TNP TEST NOT PERFO RMED No urine recei gera. Summa ry of Demog raphi cs Teran es Patie nt demog raphi cs have teran ed. No other teran es to any test resul ts have been made. Date Trevor updat ed to: 06/27 Terna ed on: 07/03 Not Available [facility] [address] [place], [address], 07/03/2024 11:40:25 Result Notes None recorded. Problems Name Problem SNOMED Code Status Onset Date Resolution Date Notes Provider Name and Address Organization Details Recorded Time Large prostate 747790689 Active 2017 BPH (benign prostatic hyperplasi a); W/U Status: confirmed Not Available [facility] 3 06:17:13 Abnormal weight loss 810660574 Active 2017 Weight loss; W/U Status: confirmed Not Available [facility] 3 06:17:13 Vitamin D deficienc y 94650309 Active 2017 Vitamin D deficiency ; W/U Status: confirmed Not Available [facility] 3 06:17:13 Polyp of colon 33037178 Active 2017 Colon polyposis; W/U Status: confirmed Not Available [facility] 3 06:17:13 Prostate specific antigen above reference range 360380505 Active 2017 Elevated PSA; W/U Status: confirmed Not Available [facility] 3 06:17:15 Erectile dysfuncti on 779402190 Active 2017 Erectile dysfunctio n; W/U Status: confirmed Not Available [facility] 3 06:17:15 Basal cell carcinoma of skin 131646521 Active 2017 Basal cell carcinoma; W/U Status: confirmed Not Available [facility] 3 06:17:16 Hyperlipi demia 43239584 Active 2017 Hyperlipid emia; W/U Status: confirmed Not Available [facility] 3 06:17:16 Benign prostatic hyperplas ia 701690644 Active 2017 BPH (benign prostatic hyperplasi a); W/U Status: confirmed Not Available [facility] 3 11:25:28 Senile dementia 93707692 Active 2022 Swathi Jett MD [address] [place] [address], [address] , MANUELA Jett MD 3 15:42:33 Anxiety 06830595 Active 2022 Swathi Jett MD [address] [place] [address], [address] , MANUELA Jett MD 3 12:01:18 Sundownin g 599697272 Active 2023 Swathi Jett MD [address] [place] [address], [address] , MANUELA Jett MD 4 13:25:51 Dementia 58289301 Active 2023 Swathi Jett MD [address] [place] [address], [address] , MANUELA Jett MD 4 16:03:18 Dementia 07391457 Active 2023 Swathi Jett MD [address] [place] [address], [address] , MANUELA Jett MD 4 16:15:59 Uncontrol lable sexual urge 535688939 Active 2023 Swathi Jett MD [address] [place] [address], [address] , MANUELA Jett MD 4 17:21:18 Aggressiv e behavior 39599632 Active 2024 Swathi Jett MD [address], [address] , MANUELA Jett MD 5 10:50:03 Problem Notes None recorded. Procedures Surgical History Date Name Laterality Status Provider Name and Address Organization Details Recorded Time 11/18/1987 vasectomy completed Swathi Jett MD [address], [address], MANUELA Jett MD 11/30/2023 08:42:55 Imaging Results None recorded. Procedure Notes None recorded. Medical Equipment None Reported. Allergies Allergen ID Allergen Name Allergen Category Reaction Reaction Severity Criticality Documentation Date Start Date Code Code System Note Provider Name and Address Organization Details Recorded Time 7041 orange food,medi cation Not available Not available Not available 11/30/2023 [id number] UNK rind Swathi Jett MD [address], [address], MANUELA Jett MD 4 08:39:21 Medications Name Sig Start Date Stop Date Status Note LastModified by Organization Details LastModified Time quetiapin e 25 mg tablet 1 tab am and 1/2 tab at noon and l tab in evening active Not Available Not Available No t Available donepezil 5 mg tablet 1 tablet; 5 MG; Q HS active Prepared By: Montse Jett hristine Not Available Not Available Not Available Centrum Silver tablet 1 tablet; -; QD active Prepared By: Montse Jett hristine Not Available Not Available Not Available prazosin 1 mg capsule Take 1 capsule twice a day by oral route as directed for 30 days, for agretania n. active Not Available Not Available No t Available donepezil 10 mg tablet 06/27 completed Not Available Not Available Not Available alprazola m 0.25 mg tablet TAKE 1 TABLET BY MOUTH THREE TIMES DAILY NEEDED 06/01 completed Not Available Not Available Not Available Aspir-81 mg tablet,de layed release 1 tablet; 81 MG; QD active Prepared By: Montse Jett hristine Not Available Not Available Not Available Ativan 0.5 mg tablet Take 1 tablet 3 times a day by oral route for 7 days. 07/09 completed Not Available Not Available Not Available finasteri de 5 mg tablet TAKE 1 TABLET BY MOUTH DAILY 06/27 completed Not Available Not Available Not Available Vitamin B-12 1,000 mcg tablet 1 tablet; 1000 MCG; QD active Prepared By: Montse Jett hristine Not Available Not Available Not Available memantine 10 mg tablet TAKE 1 TABLET BY MOUTH TWICE DAILY FOR DEMENTIA active Not Available Not Available No t Available Fish Oil 340 mg-1,000 mg capsule 1 capsule; 1000 MG; Q OTHER D active Not Available Not Available No t Available Fish Oil 300 mg-1,000 mg capsule 1 capsule; 1000 MG; Q OTHER D active Prepared By: Montse Jett hristine Not Available Not Available Not Available cholecalc iferol (vitamin D3) 50 mcg (2,000 unit) tablet 2 tablets; 2000 UNIT; QD 2017 active Prepared By: Montse Jett hristine Not Available Not Available Not Available D3-2000 bid active Not Available Not Avail able Not Available Centrum Adult 50 Plus 06/30 completed Not Available Not Available Not Available Vitals Date Recorded Body height Provider Name an d Address Organization Details Last Updated DateTime 09/23/2023 187.96 cm Arielle Jett MD 09/23/2023 11:53:28 Date Recorded Body height Body temperature Body mass index (BMI) Body weight Heart rate Oxygen saturation Oxygen saturation in Arterial blood by Pulse oximetry Systolic blood pressure Diastolic blood pressure Provider Name and Address Organization Details Last Updated DateTime 3 187.96 cm 97.9 [degF] 20.7 kg/m2 69625.3 7 g 57 /min 97 % 97 % 102 mm[Hg] 68 mm[Hg] Annie Jett MD 3 11:18:41 Date Recorded Body height Body mass index (BMI) Body weight Heart rate Respiratory rate Oxygen saturation Oxygen saturation in Arterial blood by Pulse oximetry Systolic blood pressure Diastolic blood pressure Provider Name and Address Organization Details Last Updated DateTime 4 187.96 cm 21.2 kg/m2 77609.1 8 g 70 /min 16 /min 96 % 96 % 106 mm[Hg] 70 mm[Hg] Swathi Jett MD [address], [address], MANUELA Jett MD 15:35:27 Social History Question Answer Notes LastModified by Organizat ion Details LastModified Time Tobacco Smoking Status Never Smoker Swathi Jett MD [address], [address], MANUELA Jett MD 10/04/2023 11:46:57 Do You Have An Advance Directive? Yes Information not available 10/04/2023 What Is Your Level Of Alcohol Consumption? None Information not available 10/04/2023 Are You Blind Or Do You Have Difficulty Seeing? No Information not available 10/04/2023 What Is Your Level Of Caffeine Consumption? Occasional Information not available 10/04/2023 Are You Deaf Or Do You Have Serious Difficulty Hearing? No Information not available 10/04/2023 What Type Of Diet Are You Following? REGULAR [facility] And Out 3 X Week Otherwise Lots Of Frozen Foods. Information not available 10/04/2023 How Many Children Do You Have? -2 Information not available 10/04/2023 What Is Your Relationship Status? Information not available 10/04/2023 Sex: Unknown Functional Status Question Answer Note LastModified by Organizat ion Details LastModified Time Do you have difficulty walking or climbing stairs? No Information not available 10/04/2023 Do you have transportation difficulties? No Information not available 10/04/2023 Are you able to walk? YESWOREST Information not available 10/04/2023 Do you have difficulty doing errands alone? Yes Information not available 10/04/2023 Are you able to care for yourself? No Information n ot available 10/04/2023 Do you have difficulty dressing or bathing? Yes Information not available 10/04/2023 What is your exercise level? Moderate walks Information not available 10/04/2023 Mental Status Question Answer Note LastModified by Organization D etails LastModified Time Do you have difficulty concentrating, remembering or making decisions? Yes Information no t available 10/04/2023 Family History Nothing Reported Notes:Father: Notes: d 70 yrs, of COPD and lung cancer Mother: Notes: 91 yrs, has irritable bowel syndrome and lung cancer dementia He has 3 brothers , 2 are alcoholicss and the other is fine. one sister, all alive and well. One is older, 3 are younger. Medical History Condition Response Hospitalizations Y Immunizations Vaccine Type Date Status Note Provider Nam e and Address Organization Details Recorded Time DT (pediatric) 4 completed Not Available [facility] 05/07/2023 06:17:35 Influenza, split virus, trivalent, preservative 8 completed Not Available [facility] 05/07/2023 06:17:35 pneumococcal polysaccharide PPV23 9 completed Not Available [facility] 05/07/2023 06:17:35 SARS-COV-2 (COVID-19) vaccine, UNSPECIFIED 1 completed Not Available [facility] 05/07/2023 06:17:35 SARS-COV-2 (COVID-19) vaccine, UNSPECIFIED 1 completed Not Available [facility] 05/07/2023 06:17:35 SARS-COV-2 (COVID-19) vaccine, UNSPECIFIED 1 completed Not Available [facility] 05/07/2023 06:17:35 Influenza, split virus, trivalent, preservative 2 completed Not Available [facility] 05/07/2023 06:17:35 Past Encounters Encounter ID Performer Location Encounter Start Date Encounter Closed Date Diagnosis/Indication Diagnosis SNOMED-CT Code Diagnosis ICD10 Code Diagnosis Note [id number] Shahnaz Vasquez Main Office [address] [place] [phone] 09/23/2023 09:58:25 09/23/2023 11:53:48 [id number] Swathi Jett MD Main Office [address] [place] [phone] 10/04/2023 11:11:13 10/04/2023 12:57:23 Adult health examination 833098590 Z00.00 As above. Reviewed labs and workup with patient and . Hyperlipidemia 78237356 E78.5 Not to goal. Declines prescripti on. Can consider CL balance Polyp of colon 27331194 K63.5 declines further testing Vitamin D deficiency 347 48857 E55.9 replacing. Please take with dinner for best absorption Senile dementia 08658945 F03.90 stable On medsand utd neurology. Reviewed note filled out form for adult day care Immunizati on education 494440916 Z71.85 declines at this time Anxiety 31364041 F41.9 [id number] Swathi Jett MD Main Office [address] [phone] 06/27/2024 15:10:56 06/27/2024 16:40:55 Dementia 76388558 F03.93 cot namenda. stop aricept Adult heal th examination 175145814 Z00.00 As above. Reviewed labs and workup with patient and .fille d out forms for [facility] and [facility] blood they requested. cbc, cmp, ua. Benign pro static hyperplasia 040642530 N40.0 stop finasterid e Sundowning 845047988 F05 cont quetiapine Health Concerns Section Related Observation LastModified by Organization Detai ls LastModified Time None Recorded Concern Status LastModified by Organization Details LastModified Time None Recorded Advance Directives Directive Y: Payers Encounter Date Sequence Insurance Name Policy Number Policy Salter Covered Member ID Salter Member ID Guarantor Name 09/23/2023 1 [employer] [id number] 1 Jay Perry [id number] Jay Perry 10/04/2023 1 [employer] [id number] 1 Jay Perry [id number] Jay Perry 06/27/2024 1 [employer] [id number] 1 Jay Perry [id number] Jay Perry Notes Date Note Type Note Provider Name and Address Organization Details Recorded Time 10/04/2023 text/html Your myeloperoxi dase is normal but your total, LDL and LDL particle number are all elevated. The rest of your labs are goodgoing to adult day care. 3 x week for 4.5 hours/ daystopped asa and fish oil due to bruising.declines immunizations and colonoscopyutd eye md for glasses and dentistno complaints. Swathi Jett MD [address] [place] [address], [address], MANUELA Jett MD 10/04/2023 12:46:48 06/27/2024 text/html Reviewed meds wi th patient and . Memory is non existent. would like to stop aricept and cont namenda for now.will stop finasteride. had neg prostate biopsy and doesn't like to take meds.to get flu and pneumonia [address] [facility]. Pt has progressive dementia and is moving to [facility] next week. Has a form to fill out and needs physical. Dementia is sweet and funny but can also be aggressive/ agitated. He has no memory and remains continent of bowel and bladder. states he eats whatever is put in front of him. He likes to run. Swathi Jett MD [address] [place] [address], [place], [address], MANUELA Jett MD 06/27/2024 16:17:25
--- OUTSIDE RECORDS SUMMARY | 2025-03-06 18:18 | XMS_ITS | Encounter Summary ---
Author Organization [facility] Address [address] [place] [address] Care Team Providers Care Table Runner Name Role Phone Unavailable Primary Care Provider Unavailabl e Encounter Details Date Type Department Care Team (Late st Contact Info) Description 04/27/2018 Lab Requisition [facility] Care DermPath Lab [address] [place] [address] George Ibarra MD [address] [place] [address] Social History Tobacco Use Types Packs/Day Years Used Date Smoking Tobacco: Never Assessed Sex and Gender Information Value Date Recorded Sex Assigned at Not on file 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 Gender Identity Not on file Sexual Orientation Not on file documented as of this encounter Plan of Treatment Not on file documented as of this encounter Procedures Procedure Name Priority Date/Time Associated Diagnosis Comments DERMATOPATHOLOGY Routine 04/26/2018 12:0 0 AM CDT documented in this encounter Results * DERMATOPATHOLOGY (04/26/2018 12:00 AM CDT) Case Report Dermatopathology Report Case: [id number] Authorizing Provider: George Ibarra MD Collected: 04/26/2018 12:00 AM Pathologist: Tonie Hedrick MD Received: 04/27/2018 11:49 AM Specimen: Skin, right medial calf 8 1:48 PM CDT DERMATOPATHOLOGY LABORATORY Final Diagnosis Specimen A. 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 8 1:48 PM CDT DERMATOPATHOLOGY LABORATORY Gross Description Specimen A: Received is one formalin filled container labeled with the patient's name and designated right medial calf. The specimen consists of a shave biopsy measuring 0w6d1mg. Jar 0. 1:48 PM T DERMATOPATHOLOGY LABORATORY Microscopic Description Specimen A. SKIN, right medial calf: There is a cup-shaped invagination filled with cornified material and surrounded by slight epidermal hyperplasia in association with acantholytic dyskeratosis. 1:48 PM T DERMATOPATHOLOGY LABORATORY Disclaimer An external and internal positive and negative controls are appropriate for the histochemical, immunohistochemical and immunofluorescence stain(s) in this case (if any), except where stated explicitly. The performance characteristics of the stain(s) cited in this report were developed and its performance characteristic determined by the Dermatopathology Laboratory at [facility]. These tests need not be, and therefore are not, approved by the [place] Food and Drug Administration. The tests are used for clinical purposes. Billing Codes Specimen Charges Stain Charges 38112 1 1:48 PM CDT DERMATOPATHOLOGY LABORATORY Embedded Images 1:48 PM CDT DERMATOPATHOLOGY LABORATORY Pathology/Cytolog y TISSUE SPECIMEN FROM SKIN / Unknown 04/26/2018 04/27/2018 11:49 AM CDT George Ibarra MD LAB - PATHOLOGY/CYTOLOGY ORD ERABLES Final Result DERMATOPATHOLOGY LABORATORY [facility] - Department of Dermatology [address] [place] [address] 5th Floor Lab B [address] [phone] documented in this encounter Visit Diagnoses Not on filedocumented in this encounter
--- OUTSIDE RECORDS SUMMARY | 2025-03-06 18:18 | XMS_ITS | Clinical Summary ---
Author Organization [facility] [employer] Address [address] [place] [address] Care Team Providers Care Graphics Manager Name Role Phone Unavailable Primary Care Provider Unavailabl e Source Comments [facility] [employer],non-owned Affiliates and Associated Physician Practices is amultiple site organization consisting of ambulatory clinics and hospital sitesin [place], [place], [place] and [place]. This disclosure is being madepursuant to the Care Everywhere program and may not contain all information available regarding this patient. Last updated 18.[facility] [employer] Social History Tobacco Use Types Packs/Day Years Used Date Smoking Tobacco: Never Assessed Sex and Gender Information Value Date Recorded Sex Assigned at Not on file Legal Sex Male 5:58 PM PARTNER Gender Identity Not on file Sexual Orientation Not on file Plan of Treatment Health Maintenance Due Date Last Done Comments COLOGUARD (AGES 45-75) - COL ON CA SCREENING 1955 COLON MONITORING 1955 COLONOSCOPY - COLON CA SCREENING 1955 CT COLONOGRAPHY - COLON CA SCREENING 1955 Colorectal Cancer Screening 1955 FIT - COLON CA SCREENING 1955 FLEX SIG - COLON CA SCREENING 1955 LIPID TESTING 1955 HEPATITIS C SCREENING 06/12/1973 DTAP/TDAP/TD VACCINES (1 - Tdap) 1974 PNEUMOCOCCAL VACCINE 50+ (1 of 1 - PCV) 2005 ZOSTER VACCINE (1 of 2) 2005 COVID-19 VACCINE ( - 2023-2 5 season) 2024 DEPRESSION SCREENING 11/15/2024 INFLUENZA VACCINE (Season Ended) 2025 Respiratory Syncytial Virus (RSV) Vaccine Pt: or over 60 yrs (1 - 1-dose 75+ series) 2030 HEPATITIS B VACCINE Aged Out No longe r eligible based on patient's age to complete this topic HIB VACCINE Aged Out No longer eligi ble based on patient's age to complete this topic HPV VACCINE Aged Out No longer eligi ble based on patient's age to complete this topic MENINGOCOCCAL (Group B) VACC INE SHARED DECISION-MAKING Aged Out No longer eligibl e based on patient's age to complete this topic MENINGOCOCCAL GROUPS A/C/Y/W VACCINE Aged Out No longer eligible b ased on patient's age to complete this topic Insurance [employer] [facility] Address: [facility] [address] [place] [address]
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
--- OUTSIDE RECORDS SUMMARY | 2025-03-06 18:18 | XMS_ITS | Clinical Summary ---
Author Organization [facility] Address [address], [facility] [address] [place] [address] Phone Care Team Providers Care Commission Specialist Name Role Phone Unavailable Primary Care Provider Unavailabl e Allergies Active Allergy Reactions Criticality Noted Date Comments Adhesive Tape Other (see Comments) 05/15/2016 blilsters Medications polyethylene glycol (MIRALAX) Powder Mix the entire bottle with 64 oz of a clear liquid. Use as directed by the office for colonoscopy prep. 255 g 0 6 Active Immunizations Immunization Administration Dates Next Due Covid-19, Mrna, Lnp-s, Pf, 30 Mcg/0.3 Ml Dose (Bre johnson) 02/01/2021,01/11/2021 Family History Medical History Relation Name Comments Emphysema Father Hypertension Mother Relation Name Status Comments Father Mother Alive Social History Tobacco Use Types Packs/Day Years Used Date Smoking Tobacco: Never Smokeless Tobacco: Never Alcohol Use Standard Drinks/Week Comments Yes 0 (1 standard drink = 0.6 oz pur e alcohol) occasionally Sex and Gender Information Value Date Recorded Sex Assigned at Not on file Legal Sex Male 11:38 PM CDT Gender Identity Not on file Sexual Orientation Not on file Last Filed Vital Signs Vital Sign Reading Time Taken Comments Blood Pressure - - Pulse - - Temperature - - Respiratory Rate - - Oxygen Saturation - - Inhaled Oxygen Concentration - - Weight 76.2 kg (168 lb) 05/15/2016 8:47 AM CDT Height 188 cm (6' 2 ) 05/15/2016 8:47 AM CDT Body Mass Index 21.57 05/15/2016 8:47 AM CDT Plan of Treatment Health Maintenance Due Date Last Done Comments Hepatitis C Virus (HCV) Screening 1955 TdaP Immunization 1955 Colonoscopy 2000 Colorectal Cancer Screening 2000 Cologuard 2005 Immunochemical Fecal Occult Blood 2005 Pneumococcal Immunization (5 0+ years) (1 of 1 - PCV) 2005 Zoster Immunization (1 of 2) 2005 PSA Discussion 2010 Influenza Immunization (#1) 2024 SARS-COV-2 Immunization ( - 2023- season) 2024 10/20/2021, 02/01/2021, 01/11/2021 Respiratory Syncytial Virus (RSV) Immunization (Adult) (1 - 1-dose 75+ series) 2030 Hepatitis B Immunization Aged Out No longer eligible based on patient's age to complete this topic Meningococcal Immunization (ACWY) Aged Out No longer eligible b ased on patient's age to complete this topic Rotavirus Immunization Aged Out No lo nger eligible based on patient's age to complete this topic Insurance [facility]
--- OUTSIDE RECORDS SUMMARY | 2025-03-06 18:18 | XMS_ITS | Continuity of Care Document ---
Author Organization [facility] Address [address] [place] [address] [place] [address] Phone Care Team Providers Care Nail Technician Teacher Name Role Phone Eduardo Coleman MD Unavailable Unavailable Advance Directives Directive Yes / No Effective Date File Name No Information Encounters Encounter Description Practice Location Reason(s) For Visit Diagnoses Date Provider Providers Copied on Encounter [facility], [id number] [place] [address] [address], [place], [place], [id number], [place] tel:[phone] [address] [place] Malvin Quijano No Information [phone] 6 Jared Clark. [address] [facility], [facility], [place], [place], [id number], [place]. tel:[phone] Family History Family Member Type Diagnosis Age At Onset No Information Payers Payer name Insurance type Covered alliance party ID Authoriza prachi(s) [facility] CI [id number] Social History Type Description Quantity Date Captured Comments Sex Male Smoking Status No Information Chief Complaint And Reason For Visit No Information Reason For Referral Reason For Referral No Information History Of Present Illness Encounter Date Complaint History Of Prese nt Illness No Information Functional Status Date Functional Assessmen t No Information Instructions Date Instruction Additional Infor mation No Information Assessments Type Assessment Date No Information Patient Care Teams Name Effective Dates (start - stop) Status Members No Information
[2025-03-06] MEDS: CEPHALEXIN 500 MG CAPSULE PO (18:30)
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
[2025-03-06 19:02] VITALS: PULSE 87; RESP 16; O2SAT 98
--- NOTE | 2025-03-06 19:18 | PC.NURSE ---
This RN attempted to call report to Felicitas Rivas with phone number provided on paperwork and phone number on google. No answer from staff. CATHY Cao notified.
== END 2025-03-06 19:33 | disposition home or self-care (01) ==
PROVIDERS: Emergency Provider Emergency Medicine
DX: N39.0 Urinary tract infection, site not specified (principal); R31.9 Hematuria, unspecified; G30.9 Alzheimer's disease, unspecified; F02.80 Dementia in other diseases classified elsewhere, unspecified severity, without behavioral disturbance, psychotic disturbance, mood disturbance, and anxiety
CPT/HCPCS: 36415; 80053; 81001; 83605; 85025; 96372; 99284; A9270; J2359